=== PATIENT | female | born 1945 | race American Indian/Alaskan Native ===

== ENCOUNTER 2022-04-20 09:21 | Emergency (ER) | payer MEDICARE ==
[2022-04-20 09:53] VITALS: BP 151/86
--- NOTE | 2022-04-20 12:30 | XRay Report ---
CHEST 2 VIEWS INDICATION / CLINICAL INFORMATION: SOB. COMPARISON: None available. FINDINGS: SUPPORT DEVICES: None. HEART / MEDIASTINUM: No significant abnormality. LUNGS / PLEURA: No significant pulmonary or pleural abnormality. No pneumothorax. ADDITIONAL FINDINGS: No significant additional findings. IMPRESSION: 1. No acute findings. Signer Name: Jian Galvez MD Signed: 04/20/2022 12:26 PM Workstation Name: [id number]
[2022-04-20 13:28] LABS: Hematocrit 46.8 % (30.3-42.9); Hemoglobin 15.2 gm/dl (10.1-14.3); Mean Corpuscular HGB Conc 33 % (30-34); Mean Corpuscular Volume 89 fl (79-97); Platelet Count 251 K/mm3 (140-440); Red Blood Count 5.27 M/mm3 (3.65-5.03); Red Cell Distribution Width 14.3 % (13.2-15.2)
[2022-04-20 13:46] LABS: Alanine Aminotransferase 15 units/L (7-56); Albumin 4.6 g/dL (3.9-5); Blood Urea Nitrogen 14 mg/dL (7-17); Calcium 10.2 mg/dL (8.4-10.2); Hemolysis Index 2
[2022-04-20 13:48] LABS: BUN/Creatinine Ratio 20
--- NOTE | 2022-04-20 14:22 | Emergency Department Report ---
Minor Respiratory - HPI Chief Complaint: Upper Respiratory Infection Stated Complaint: COUGH/COLD Time Seen by Provider: 04/20/22 12:43 Duration: 3 Days Pain Location: Chest Severity: mild Minor Respiratory: Yes Rhinorrhea, Yes Sore Throat, Yes Able to Tolerate Fluids, Yes Cough, Yes Sick Contacts, No Ear Pain, No Hemoptysis, No Chest Pain, No Shortness of Breath, No Fever ED Review of Systems ROS: Stated complaint: COUGH/COLD Other details as noted in HPI Comment: All other systems reviewed and negative ED Past Medical Hx - Past Medical History Previous Medical History?: Yes Hx Hypertension: Yes Additional medical history: thyroid - Surgical History Past Surgical History?: Yes - Family History Family history: no significant - Social History Smoking Status: Never Smoker Substance Use Type: None - Medications Home Medications: Home Medications Medication Instructions Recorded Confirmed Last Taken Type Azithromycin [Zithromax Z-BREEZY] 250 mg PO DAILY #6 tablet 04/20/22 Unknown Rx Benzonatate [Tessalon Perles] 100 mg PO Q12H PRN #20 capsule 04/20/22 Unknown Rx Cetirizine HCl [ZyrTEC] 10 mg PO DAILY #30 capsule 04/20/22 Unknown Rx Fluticasone [Flonase] 1 spray NS QDAY #1 bottle 04/20/22 Unknown Rx Ibuprofen [Motrin] 800 mg PO Q8HR PRN #30 tablet 04/20/22 Unknown Rx Minor Respiratory Exam - Exam General: Vital signs noted. No distress. Alert and acting appropriately. HEENT: Yes Pharyngeal Erythema, Yes Moist Mucous Membranes, No Pharyngeal Exudates, No Rhinorrhea, No Conjuctival Injection, No Frontal Tenderness, No Maxillary Tenderness Ear: Neither TM Bulge, Neither TM Erythema, Neither EAC Pain, Neither EAC Discharge Neck: Yes Supple, No Adenopathy Lungs: Yes Good Air Exchange, No Wheezes, No Ronchi, No Stridor, No Cough, No Labored Respirations, No Retractions, No Use of Accessory Muscles, No Other Abnormal Lung Sounds Heart: Yes Regular, No Murmur Abdomen: Yes Normal Bowel Sounds, No Tenderness, No Peritoneal Signs Skin: No Rash, No Edema Neurologic: Alert and oriented, no deficits. Musculoskeletal: Unremarkable. ED Course Vital Signs 04/20/22 09:50 Temperature 98.4 F Pulse Rate 97 H Respiratory 16 Rate Blood Pressure 151/86 [Right] O2 Sat by Pulse 97 Oximetry ED Medical Decision Making - Lab Data Result diagrams: 04/20/22 12:22 04/20/22 12:22 - EKG Data Rate: normal - EKG Data When compared to previous EKG there are: no significant change Interpretation: no acute changes - Radiology Data Radiology results: report reviewed, image reviewed - Medical Decision Making Labs 04/20/22 04/20/22 12:22 12:22 WBC 8.9 RBC 5.27 H Hgb 15.2 H Hct 46.8 H MCV 89 MCH 29 MCHC 33 RDW 14.3 Plt Count 251 Sodium 141 Potassium 5.0 Chloride 102.9 Carbon Dioxide 26 Anion Gap 17 BUN 14 Creatinine 0.7 Estimated GFR > 60 BUN/Creatinine Ratio 20 Glucose 89 Calcium 10.2 Total Bilirubin 0.50 AST 14 ALT 15 Alkaline Phosphatase 62 Troponin T < 0.010 Total Protein 7.3 Albumin 4.6 Albumin/Globulin Ratio 1.7 Vital Signs 04/20/22 09:50 Temperature 98.4 F Pulse Rate 97 H Respiratory 16 Rate Blood Pressure 151/86 [Right] O2 Sat by Pulse 97 Oximetry Critical care attestation.: If time is entered above; I have spent that time in minutes in the direct care of this critically ill patient, excluding procedure time. ED Disposition Clinical Impression: URI (upper respiratory infection) Disposition: 01 HOME / SELF CARE / HOMELESS Is pt being admited?: No Does the pt Need Aspirin: No Condition: Stable Additional Instructions: MEDS ORDERED TODAY SEE PCP IN 48 HOURS REFERRAL BELOW STAY WELL HYDRATED TAKE A DAILY OVER THE COUNTER MVI Referrals: YIN MAI MD [Staff Physician] - 3-5 Days Time of Disposition: 14:45
--- NOTE | 2022-04-21 09:31 | Electrocardiograph Report ---
[facility] Test Date: 2022-04-20 Test Time: 14:41:17 Pat Name: DWAIN MCKEON Department: Room: Gender: F [employer]: TECH : 1945 Requested By: LALO MATA Order Number: [id number] Reading MD: Arash Velze Measurements Intervals Robbins Rate: 72 P: 73 NE: 155 QRS: 4 QRSD: 78 T: 29 QT: 390 QTc: 426 Interpretive Statements Sinus arrhythmia No previous ECG available for comparison Electronically Signed On 04-21-2022 9:31:21 EDT by Arash Velez
== END 2022-04-20 15:47 | disposition home or self-care (01) ==
LOC: ED 09:21
DX: J06.9 Acute upper respiratory infection, unspecified (principal); I10 Essential (primary) hypertension
CPT/HCPCS: 36415; 71046; 80053; 84484; 85027; 93005; 99283